=== PATIENT | female | born 1960 | race Caucasian/White ===

== ENCOUNTER 2016-09-23 12:54 | Emergency (ER) | payer OTHER ==
[2016-09-23 13:02] VITALS: TEMP 98.6
[2016-09-23] MEDS ORDERED: LETS SOLN TOPICAL 1 EA SYR TP ONE (13:40)
--- NOTE | 2016-09-23 13:49 | EDPHY ---
H & P Time Seen by Provider: 09/23/16 13:48 HPI/ROS: Chief complaint. Lip laceration HPI. 55-year-old female with lip laceration sustained prior to arrival. She was moving a floor Marcel in the garage that was frozen to the floor. She pulled on it hard came loose and hit her in the left lower lip. No other injuries. No loss of consciousness. No neck pain. No dental trauma. ROS Constitutional. no fever/chills, no weakness Eyes. no problems with vision ENT. no sore throat, no nasal drainage Cardiovascular. no chest pain Respiratory. no shortness of breath, no cough Abdominal. no abdominal pain, no nausea/vomiting, no diarrhea . no problems urinating MS. no calf pain/swelling, no neck/back pain, no joint pain Skin. Lip laceration Lymph. no swollen glands Neuro. no headache, no dizziness, no difficulty walking or with speech Past Medical/Surgical History: Past medical history cholecystectomy, hernia repair Social History: nonsmoker no alcohol Smoking Status: Never smoked Physical Exam: General Appearance: Alert pleasant well-developed female mild distress vital signs are stable Eyes: Pupils equal and round no pallor or injection. ENT, Mouth: Mucous membranes are moist. Respiratory: There are no retractions, lungs are clear to auscultation. Cardiovascular: Regular rate and rhythm. Gastrointestinal: Abdomen is soft and nontender, no masses, bowel sounds normal. Neurological: Awake and alert, sensory and motor exams grossly normal. Skin: 1.5 cm laceration through the vermilion border left lower lip. No trauma to the inner lip or to the T Musculoskeletal: Neck is supple nontender. Extremities symmetrical, full range of motion. Psychiatric: Patient is oriented X 3, there is no agitation. Constitutional: Initial Vital Signs Temperature (C) 37 C 09/23/16 13:00 Heart Rate 73 09/23/16 13:00 Respiratory Rate 18 09/23/16 13:00 O2 Sat (%) 93 09/23/16 13:00 O2 Delivery Mode Room Air Allergies/Adverse Reactions: codeine Allergy (Verified 09/23/16 12:59) Penicillins Allergy (Verified 09/23/16 12:59) Home Medications: Medication Instructions Recorded NK [No Known Home Meds] 09/23/16 Medical Decision Making ED Course/Re-evaluation: Procedure: Laceration repair. Verbal consent was obtained from the patient. The 1.5 cm laceration on the left lower lip through vermilion border was anesthetized in the usual fashion. The wound was irrigated, draped and explored to its base with a gloved finger. There were no deep structures involved. No tendon injury was identified. The wound was repaired with 5 5-0 Prolene sutures. The wound repair was simple. The procedure was performed by myself. Differential Diagnosis: Dental trauma, retained foreign body, infection potential Departure - Departure Disposition: Home, Routine, Self-Care Clinical Impression: Lip laceration Qualifiers: Encounter type: initial encounter Qualifier Code: (S01.511A) Laceration without foreign body of lip, initial encounter Condition: Good Instructions: Care For Your Stitches (ED) Additional Instructions: Ice to your lip next 24 hours. Ibuprofen for discomfort. You may shower with stitches in. Return for signs of infection. Stitches out 5 days Referrals: Radha Dunlap MD [Primary Care Provider] - 5-7 days, call for appt.
[2016-09-23] MEDS ORDERED: LIDO/EPI 1% **for epidural** 30 ML SDV ONE (13:56)
[2016-09-23 14:23] VITALS: BP 135/70; PULSE 76; RESP 16; O2SAT 97
== END 2016-09-30 11:49 | disposition home or self-care (01) ==
PROC: 0CQ1XZZ Repair Lower Lip, External Approach (ICD-10-PCS; principal; 2016-09-23)
DX: S01.511A Laceration without foreign body of lip, initial encounter (principal); W22.8XXA Striking against or struck by other objects, initial encounter; Y93.89 Activity, other specified